=== PATIENT | male | born 1975 | race Caucasian/White ===

== ENCOUNTER 2020-06-17 08:28 | Day surgery (SDC) | payer BC ==
[2020-06-12 14:57] VITALS: BMI 29.7
[~2020-06-17 08:28] MED LIST: LACTATED RINGERS 1,000 ML IV SCH; LIDOCAINE 1% (10MG/ML) FOR IV START INTRADERMA PRN
--- NOTE | 2020-06-17 08:28 | P.GSHP ---
History of Present Illness H&P Date: 06/17/20 CHIEF COMPLAINT: GERD and colon screen HISTORY OF PRESENT ILLNESS: The patient is a 45-year-old male who presents with gastroesophageal reflux disease and need for colon screen. Upper and lower endoscopy were offered for further evaluation and management. PAST MEDICAL HISTORY: Please see list. PAST SURGICAL HISTORY: Please see list. MEDICATIONS: Please see list. ALLERGIES: Please see list. SOCIAL HISTORY: No illicit drug use FAMILY HISTORY: No reports of Crohn disease or ulcerative colitis. REVIEW OF ORGAN SYSTEMS: CONSTITUTIONAL: No reports of fevers or chills. GI: Denies any blood in stools or constipation. PHYSICAL EXAM: VITAL SIGNS: Stable GENERAL: Well-developed pleasant in no acute distress. HEENT: No scleral icterus. Extraocular movements grossly intact. Moist buccal mucosa. NECK: Supple without lymphadenopathy. CHEST: Unlabored respirations. Equal bilateral excursions. CARDIOVASCULAR: Regular rate and rhythm. Distal 2+ pulses. ABDOMEN: Soft, nondistended. MUSCULOSKELETAL: No clubbing, cyanosis, or edema. ASSESSMENT: 1. Gastroesophageal reflux disease 2. Colon screen. PLAN: 1. Recommend proceeding with an upper and lower endoscopy Past Medical History Past Medical History: Atrial Fibrillation, GERD/Reflux, Hypertension Additional Past Medical History / Comment(s): loose stools, change in color of stool, History of Any Multi-Drug Resistant Organisms: None Reported Past Surgical History: No Surgical Hx Reported Past Anesthesia/Blood Transfusion Reactions: No Reported Reaction Additional Past Anesthesia/Blood Transfusion Reaction / Comment(s): never had anesthesia Smoking Status: Never smoker - Past Family History Mother Family Medical History: No Reported History Medications and Allergies Home Medications Medication Instructions Recorded Confirmed Type Ergocalciferol (Vitamin D2) 50 mcg PO DAILY 06/12/20 06/12/20 History [Vitamin D2 (2000 Iu)] Metoprolol Tartrate [Lopressor] 50 mg PO QAM 06/12/20 06/12/20 History Omeprazole [PriLOSEC] 20 mg PO AC-BRKFST 06/12/20 06/12/20 History Rivaroxaban [Xarelto] 20 mg PO HS 06/12/20 06/12/20 History amLODIPine [Norvasc] 5 mg PO DAILY 06/12/20 06/12/20 History Allergies Allergy/AdvReac Type Severity Reaction Status Date / Time No Known Allergies Allergy Verified 06/12/20 14:49
[2020-06-17 08:54] VITALS: TEMP 98.1
[2020-06-17] MEDS ORDERED: PROPOFOL 10 MG/ML 20 ML VIAL IV ONE (09:52)
[2020-06-17] MEDS ORDERED: LIDOCAINE 1% INJ 10MG/ML (20 ML MDV) ONE (09:52)
[2020-06-17] MEDS ORDERED: MIDAZOLAM 2 MG/2 ML VIAL ONE (09:52)
--- NOTE | 2020-06-17 10:32 | P.PCN ---
Date of Procedure: 06/17/20 Description of Procedure: PREOPERATIVE DIAGNOSIS: Dysphagia. Gastroesophageal reflux disease Epigastric abdominal pain POSTOPERATIVE DIAGNOSIS: Dysphagia. Gastroesophageal reflux disease Epigastric abdominal pain Esophageal stricture Gastritis OPERATION: Esophagogastroduodenoscopy with balloon dilation, 20 mm Esophagogastroduodenoscopy with cold forceps biopsies along antrum SURGEON: Herlinda Justice MD ANESTHESIA: MAC. INDICATIONS: The patient is a 45-year-old male who presents with gastritis, epigastric abdominal pain. Upper endoscopy was offered for therapeutic and diagnostic assessment. Benefits and risks of the procedure were described. Informed consent was obtained. DESCRIPTION: The patient was brought into the endoscopy suite and laid in the left lateral decubitus position. After a timeout was confirmed, the procedure was initiated. An Olympus gastroscope was passed into the esophagus where a stricture along the distal esophagus was identified with esophagitis. The stomach was entered. Mild gastritis was identified. The scope was advanced to the duodenum which was unremarkable. Retroflexion the scope confirmed a Hill grade 3 lower esophageal valve. LA grade C erosive esophagitis was identified without ulcerations. Diaphragmatic hiatal hernia 3 cm was found. Cold forceps biopsies were obtained of the antrum. Next a [employer] 20 mm balloon was advanced with dilation of distal esophageal stricture of 15 mm and left in place for 2-3 minutes stretch. Mucosal tear with bleeding was identified without full-thickness injury. The GI tract was desufflated. The patient tolerated the procedure well. FINDINGS: Squamocolumnar junction unremarkable at 39 cm. Diaphragmatic hiatus at 42 cm Hiatal hernia, 3 cm Distal esophageal stricture without ulceration Balloon dilation of 20 mm performed for stricture of 15 mm. Chronic gastritis without bleeding. Hill grade 3 lower esophageal valve. LA grade C esophagitis. RECOMMENDATIONS: 1. Recommend omeprazole 40 mg twice a day for esophageal stricture and severe erosive esophagitis 2. Chest x-ray obtained status post dilation.
[2020-06-17] MEDS ORDERED: NALOXONE 0.4 MG/ML 1 ML VIAL IV PRN (10:45)
[2020-06-17] MEDS ORDERED: ONDANSETRON 4 MG/2 ML VIAL IVP PRN (10:45)
[2020-06-17] MEDS ORDERED: SODIUM CHLORIDE 0.9% 1,000 ML IV ONE (10:47)
--- NOTE | 2020-06-17 10:49 | XR ---
EXAMINATION TYPE: XR chest 1V portable DATE OF EXAM: 06/17/2020 COMPARISON: NONE HISTORY: Chest pain TECHNIQUE: Single frontal view of the chest is obtained. FINDINGS: There is no focal air space opacity, pleural effusion, or pneumothorax seen. The cardiac silhouette size is within normal limits. The osseous structures are intact. IMPRESSION: 1. No acute process.
[2020-06-17] MEDS ORDERED: SIMETHICONE 40 MG/0.6 ML DROPS 2,000 MG/30 ML BOTTLE PO SCH (11:01)
[2020-06-17] MEDS: PANTOPRAZOLE 40 MG/10 ML VIAL IV SCH ×2 (11:20→11:24)
--- NOTE | 2020-06-17 11:28 | P.PCN ---
Date of Procedure: 06/17/20 Description of Procedure: PREOPERATIVE DIAGNOSIS: Change in bowel habits POSTOPERATIVE DIAGNOSIS: Poor prep Descending colon adenoma OPERATION: Colonoscopy to the ileocecal valve and appendiceal orifice, cecum Colonoscopy with hot snare polypectomy SURGEON: Herlinda Justice MD. ANESTHESIA: MAC. INDICATIONS: The patient is an 45-year-old male who presents family history of malignant colon polyps and personal history of colon polyps. Last colonoscopy 5 years. Benefits and risks were described and informed consent was obtained. DESCRIPTION OF PROCEDURE: The patient had undergone Suprep. The patient had been brought into the operating room and laid in the left lateral decubitus position. After adequate intravenous sedation, the rectum was examined with 2% lidocaine jelly. The prostate was unremarkable. No external hemorrhoids were encountered. The rectal tone was within normal limits. No lesions were palpated in the rectal vault. An Olympus colonoscope was advanced until the cecum, ileocecal valve and appendiceal orifice were clearly viewed. The prep was poor. No sigmoid diverticulosis was encountered. Colonic polyps were found and removed. No evidence of focal colitis was found. Retroflexion of the scope demonstrated grade 1 internal hemorrhoids without active bleeding or inflammation. The colon was desufflated. The patient had tolerated the procedure well. Withdrawal time was over 6 minutes. FINDINGS: Aronchick preparation quality scale 4 (1-5) Internal hemorrhoids, grade 1 No external hemorrhoids, grade 4. No arteriovenous malformations. No sigmoid diverticulosis Removal of 1 polyp: - Snare polypectomy 30 cm from the anal verge, 6 mm tubulovillous adenoma polyp, descending colon No focal colitis. RECOMMENDATIONS: Repeat colonoscopy in 3 years, 2023. Recommend extended colonic prep due to very poor prep Plan - Discharge Summary New Discharge Prescriptions: No Action Omeprazole [PriLOSEC] 20 mg PO AC-BRKFST amLODIPine [Norvasc] 5 mg PO DAILY Ergocalciferol (Vitamin D2) [Vitamin D2 (2000 Iu)] 50 mcg PO DAILY Rivaroxaban [Xarelto] 20 mg PO HS Metoprolol Tartrate [Lopressor] 50 mg PO QAM Discharge Medication List Ergocalciferol (Vitamin D2) [Vitamin D2 (2000 Iu)] 50 mcg PO DAILY 06/12/20 [History] Metoprolol Tartrate [Lopressor] 50 mg PO QAM 06/12/20 [History] Omeprazole [PriLOSEC] 20 mg PO AC-BRKFST 06/12/20 [History] Rivaroxaban [Xarelto] 20 mg PO HS 06/12/20 [History] amLODIPine [Norvasc] 5 mg PO DAILY 06/12/20 [History] Patient Instructions/Handouts: *[facility] - (Anesthesia) Endoscopy Discharge Instructions, Colonoscopy (DC), Upper Endoscopy (DC)
--- NOTE | 2020-06-17 11:29 | P.PN ---
Progress Note - Text Progress Note Date: 06/17/20 Postoperatively, patient complained of epigastric pain. Chest x-ray obtained demonstrating no pneumomediastinum or acute injury. He has pre-existing history of severe cardiac disease including atrial fibrillation, chronic blood thinners. Recommend telemetry with admission IV antibiotics for esophageal dilation with mucosal tear. We'll reevaluate clinical course.
[2020-06-17 11:43] VITALS: RESP 18
[2020-06-17 12:19] LABS: Basophils % (A) 0 %; Eosinophils % (A) 1 %; HCT 46.4 % (39.0-53.0); HGB 16.3 gm/dL (13.0-17.5); Lymphocytes # (A) 0.9 k/uL (1.0-4.8); Lymphocytes % (A) 15 %; MCH 30.4 pg (25.0-35.0); MCV 86.9 fL (80.0-100.0); Mean Platelet Volume 7.9; Monocytes # (A) 0.3 k/uL (0-1.0); Monocytes % (A) 5 %; Neutrophils # (A) 4.6 k/uL (1.3-7.7); Neutrophils % (A) 78 %; Platelet Count 218 k/uL (150-450); RBC 5.34 m/uL (4.30-5.90); RDW 12.9 % (11.5-15.5); WBC 5.9 k/uL (3.8-10.6)
[2020-06-17 12:25] LABS: ALT 19 U/L (4-49); AST 23 U/L (17-59); African American GFR (CKD) >90 (>60 ml/min/1.73 sqM); Albumin 4.5 g/dL (3.5-5.0); Alkaline Phosphatase 88 U/L (38-126); Anion Gap 6 mmol/L; Blood Urea Nitrogen 21 mg/dL (9-20); Calcium 9.6 mg/dL (8.4-10.2); Carbon Dioxide 28 mmol/L (22-30); Chloride 105 mmol/L (98-107); Glucose 102 mg/dL (74-99); Magnesium 2.3 mg/dL (1.6-2.3); Non-African American GFR(CKD) >90 (>60 ml/min/1.73 sqM); Potassium 4.3 mmol/L (3.5-5.1); Sodium 139 mmol/L (137-145); Total Bilirubin 0.9 mg/dL (0.2-1.3); Total Protein 7.1 g/dL (6.3-8.2)
[2020-06-17 12:56] VITALS: BP 136/91; PULSE 78
--- NOTE | 2020-06-17 13:23 | P.PN ---
Progress Note - Text Progress Note Date: 06/17/20 Patient reevaluated. Chest x-ray was unremarkable. White blood consult was normal. Patient's abdominal pain had resolved. No further abdominal distention. Patient clinically resolved symptoms. Stable for discharge.
[2020-06-17] MEDS ORDERED: ACETAMINOPHEN IV (For NPO) 1,000 MG in EMPTY BAG 1 BAG IVPB ONE (14:00)
[2020-06-18] MEDS ORDERED: amLODIPine 5 MG TAB PO SCH (09:00)
[2020-06-18] MEDS ORDERED: METOPROLOL TARTRATE 50 MG TAB PO SCH (09:00)
[2020-06-18] MEDS ORDERED: ENOXAPARIN 30 MG/0.3 ML SYRINGE SQ SCH (09:00)
== END 2020-06-17 13:49 | disposition home or self-care (01) ==
LOC: ORWHC2ENDO 08:28 → 6NMEDSUR 10:19 → ORWHC2ENDO 10:19
PROVIDERS: ATTEND Surgery Plastic and Reconstructive Surgery
DX: K29.50 Unspecified chronic gastritis without bleeding (principal); K22.2 Esophageal obstruction; K20.0 Eosinophilic esophagitis; D12.4 Benign neoplasm of descending colon; K44.9 Diaphragmatic hernia without obstruction or gangrene; Z80.0 Family history of malignant neoplasm of digestive organs; Z86.010 Personal history of colon polyps; K64.0 First degree hemorrhoids; R19.4 Change in bowel habit; I48.91 Unspecified atrial fibrillation; I10 Essential (primary) hypertension; Z79.01 Long term (current) use of anticoagulants; Z79.899 Other long term (current) drug therapy
CPT/HCPCS: 88305; 80053; 83735; 85025; 87635; 71045; 45385; 43239; 43249; J2250; J0690; J2001; J0131; J2704; C9113; C1726

== ENCOUNTER 2020-08-20 06:25 | Day surgery (SDC) | payer BC ==
[2020-08-19 11:50] VITALS: BMI 29.1
[~2020-08-20 06:25] MED LIST changes: -LIDOCAINE 1% (10MG/ML) FOR IV START INTRADERMA PRN; +SODIUM CHLORIDE 0.9% 1,000 ML IV SCH
[2020-08-20] MEDS ORDERED: SODIUM CHLORIDE 0.9% 500 ML 500 ML IV ONE (06:44)
[2020-08-20 07:02] VITALS: TEMP 97.9
[2020-08-20] MEDS ORDERED: PROPOFOL 10 MG/ML 20 ML VIAL IV ONE (07:25)
[2020-08-20] MEDS ORDERED: BENZOCAINE SPRAY 1 CAN MUCOUS MEM ONE (07:31)
[2020-08-20 07:32] LABS: African American GFR (CKD) >90 (>60 ml/min/1.73 sqM); Anion Gap 9 mmol/L; Blood Urea Nitrogen 26 mg/dL (9-20); Calcium 9.8 mg/dL (8.4-10.2); Carbon Dioxide 28 mmol/L (22-30); Chloride 105 mmol/L (98-107); Glucose 97 mg/dL (74-99); Non-African American GFR(CKD) >90 (>60 ml/min/1.73 sqM); Potassium 4.1 mmol/L (3.5-5.1); Sodium 142 mmol/L (137-145)
[2020-08-20 07:57] VITALS: RESP 16
[2020-08-20] MEDS ORDERED: LOSARTAN 25 MG TAB PO STA (07:58)
[2020-08-20 09:18] VITALS: BP 122/78; PULSE 63
--- NOTE | 2020-08-20 11:21 | ECHOS ---
STRESS ECHOCARDIOGRAM CARDIOVERSION PROCEDURE: INDICATION: Persistent atrial fibrillation. The patient underwent cardioversion for persistent atrial fibrillation. We made sure that there was no intracardiac thrombus with the transesophageal echo. The patient had been adequately anticoagulated with Xarelto and converted to sinus rhythm following a single 200 joule synchronized DC shock and patient remained in sinus rhythm and we will obtain an EKG. MANDY / LAURY: [id number] /
--- NOTE | 2020-08-20 11:21 | ECHOS ---
STRESS ECHOCARDIOGRAM INDICATION: Persistent atrial fibrillation. PROCEDURE NOTE: After obtaining informed consent, transesophageal echocardiogram was performed in left lateral position using an Omni plane probe. Local and IV sedation were obtained by the slip sheeter. Color Doppler and 2D and spectral analysis has been performed. The patient tolerated the procedure well without any obvious immediate complications. FINDINGS: 1. There is no intracardiac thrombus within the left atrial appendage, left atrium, right atrium, right ventricle. 2. Left ventricle appears mildly enlarged with diffuse global hypokinesis and moderate LV dysfunction with an ejection fraction of 40%. 3. Left atrium appears enlarged. 4. Right atrium and right ventricle seen within normal limits. 5. Interatrial septum: There is no evidence of vmck-ir-xklyy shunt by color-flow Doppler or clrrq-ba-ffpw shunt by agitated saline contrast study. 6. Mitral valve shows moderate central mitral regurgitation secondary to dilated mitral anulus. 7. Tricuspid valve appears normal. 8. Aortic valve is a 3-leaflet valve. There is no evidence of aortic stenosis or regurgitation. 9. Aortic root appears within normal limits. CONCLUSIONS: 1. No intracardiac thrombus. 2. Moderate LV dysfunction. 3. Moderate mitral regurgitation. PLAN: Patient will undergo cardioversion. MMODL / IJN: [id number] /
== END 2020-08-20 09:19 | disposition home or self-care (01) ==
LOC: CATHCVL 06:25
PROVIDERS: ATTEND Internal Medicine Cardiovascular Disease
DX: I48.19 Other persistent atrial fibrillation (principal); I34.0 Nonrheumatic mitral (valve) insufficiency; I10 Essential (primary) hypertension; Z82.49 Family history of ischemic heart disease and other diseases of the circulatory system; Z79.01 Long term (current) use of anticoagulants; Z79.899 Other long term (current) drug therapy; Z20.822 Contact with and (suspected) exposure to COVID-19
CPT/HCPCS: 93312; 93320; 93325; 92960; 80048; 87635; J2704

== ENCOUNTER 2020-09-09 06:29 | Day surgery (SDC) | payer BC ==
[2020-09-08 12:49] VITALS: BMI 30.5
[~2020-09-09 06:29] MED LIST changes: +ALPRAZolam 0.25 MG TAB PO PRN; +ALPRAZolam 0.5 MG TAB PO PRN; +ASPIRIN 325 MG TAB PO STA; +ATORVASTATIN 80 MG TAB PO STA; +HEPARIN SODIUM,PORCINE 10,000 UNIT in SODIUM CHLORIDE 0.9% 1,000 ML IRRIGATION PRN; +HEPARIN SODIUM,PORCINE 2,500 UNIT in SODIUM CHLORIDE 0.9% 250 ML IRRIGATION PRN; -LACTATED RINGERS 1,000 ML IV SCH; +NITROGLYCERIN SL TABS 0.4 MG TAB SUBLINGUAL PRN; -SODIUM CHLORIDE 0.9% 1,000 ML IV SCH; +SODIUM CHLORIDE 0.9% 1,000 ML in EMPTY BAG 1 BAG IV ONE
[2020-09-09] MEDS ORDERED: SODIUM CHLORIDE 0.9% 1,000 ML IV ONE (06:43)
[2020-09-09 07:16] VITALS: RESP 16; TEMP 98.9
[2020-09-09] MEDS: MIDAZOLAM 2 MG/2 ML VIAL IV ONE ×2 (07:40→07:46)
[2020-09-09] MEDS ORDERED: fentaNYL (PF) 50 MCG/ML 2 ML AMP IV ONE (07:40)
[2020-09-09] MEDS ORDERED: LIDOCAINE 1% INJ 10MG/ML (20 ML MDV) SQ ONE (07:43)
[2020-09-09] MEDS ORDERED: METOPROLOL TARTRATE 5 MG/5 ML VIAL IVP ONE (07:51)
[2020-09-09] MEDS ORDERED: IOPAMIDOL-370 125ML BTL INJ ONE (07:55)
[2020-09-09] MEDS ORDERED: RX INFO: IV CONTRAST WAS GIVEN 1 EACH MISC MISCELLANE PRN (08:07)
[2020-09-09 08:09] LABS: HCT 43.3 % (39.0-53.0); HGB 14.8 gm/dL (13.0-17.5); MCH 29.9 pg (25.0-35.0); MCHC 34.2 g/dL (31.0-37.0); MCV 87.5 fL (80.0-100.0); Mean Platelet Volume 7.8; Platelet Count 196 k/uL (150-450); RBC 4.96 m/uL (4.30-5.90); RDW 13.9 % (11.5-15.5); WBC 5.8 k/uL (3.8-10.6)
[2020-09-09] MEDS ORDERED: SODIUM CHLORIDE 0.9% 1,000 ML IV SCH (08:15)
[2020-09-09 08:31] LABS: Eosinophils # (M) 0.17 k/uL (0-0.7); Lymphocytes # (M) 1.33 k/uL (1.0-4.8); Monocytes # (M) 0.58 k/uL (0-1.0); Neutrophils # (M) 3.71 k/uL (1.3-7.7); Neutrophils % (M) 64 %; Nucleated Red Blood Cells 0 /100 WBC (0-0); Total Cells Counted 100
[2020-09-09 08:32] LABS: Anisocytosis (M) Present; Poikilocytosis (M) Present
--- NOTE | 2020-09-09 08:53 | CC ---
CARDIAC CATHETERIZATION REPORT PROCEDURE PERFORMED: Cardiac catheterization. INDICATION: Dilated cardiomyopathy. PROCEDURE NOTE: After obtaining informed consent, left heart catheterization and coronary angiogram were performed via the right femoral artery using standard Hayden catheters. Patient tolerated the procedure well without any obvious immediate complications. A femoral angiogram was performed and Angio-Seal was deployed for hemostasis. He received moderate conscious sedation. Total sedation time was 17 minute. HEMODYNAMICS: Left ventricular end-diastolic pressure is 8 to 12 mm. There is no significant gradient across the aortic valve. LEFT VENTRICULOGRAM: Not performed. ANGIOGRAPHIC DATA: The left main coronary artery is a small vessel and is free of stenosis. Divides into left anterior descending coronary artery and circumflex coronary artery. LAD and its branches, circumflex coronary artery and its branches are free of significant stenosis. Right coronary artery is a large dominant vessel and is free of significant disease. CONCLUSIONS: 1. Normal coronary arteries. 2. Nonischemic cardiomyopathy. PLAN: The patient's heart rate is poorly controlled. I will increase the dose of Toprol-XL to 100 mg daily. Continue the losartan. Continue the Xarelto. Consider starting him on amiodarone and make another attempted cardioversion and if we are unsuccessful refer him to EP for ablation. MMODL / IJN: [id number] /
[2020-09-09 12:20] VITALS: PULSE 84
[2020-09-09 12:24] VITALS: BP 136/83
== END 2020-09-09 12:01 | disposition home or self-care (01) ==
LOC: CATHCVL 06:29
PROVIDERS: ATTEND Internal Medicine Cardiovascular Disease
DX: I42.9 Cardiomyopathy, unspecified (principal); I10 Essential (primary) hypertension; Z82.49 Family history of ischemic heart disease and other diseases of the circulatory system; I48.91 Unspecified atrial fibrillation; Z79.01 Long term (current) use of anticoagulants; Z79.899 Other long term (current) drug therapy
CPT/HCPCS: 93458; 85025; C1769 ×2; C1760; C1894; J2250; J2001; J3010; Q9967

== ENCOUNTER 2020-12-24 07:35 | Day surgery (SDC) | payer BC ==
[2020-12-22 15:55] VITALS: BMI 29.8
[~2020-12-24 07:35] MED LIST changes: -ALPRAZolam 0.25 MG TAB PO PRN; -ALPRAZolam 0.5 MG TAB PO PRN; -ASPIRIN 325 MG TAB PO STA; -ATORVASTATIN 80 MG TAB PO STA; -HEPARIN SODIUM,PORCINE 10,000 UNIT in SODIUM CHLORIDE 0.9% 1,000 ML IRRIGATION PRN; -HEPARIN SODIUM,PORCINE 2,500 UNIT in SODIUM CHLORIDE 0.9% 250 ML IRRIGATION PRN; -NITROGLYCERIN SL TABS 0.4 MG TAB SUBLINGUAL PRN; +SODIUM CHLORIDE 0.9% 1,000 ML IV SCH; -SODIUM CHLORIDE 0.9% 1,000 ML in EMPTY BAG 1 BAG IV ONE
[2020-12-24] MEDS ORDERED: SODIUM CHLORIDE 0.9% 500 ML 500 ML IV ONE (07:50)
[2020-12-24 08:07] VITALS: RESP 16; TEMP 98.8
[2020-12-24 09:12] LABS: African American GFR (CKD) >90 (>60 ml/min/1.73 sqM); Anion Gap 8 mmol/L; Blood Urea Nitrogen 20 mg/dL (9-20); Calcium 9.5 mg/dL (8.4-10.2); Carbon Dioxide 26 mmol/L (22-30); Chloride 107 mmol/L (98-107); Glucose 98 mg/dL (74-99); Non-African American GFR(CKD) >90 (>60 ml/min/1.73 sqM); Potassium 3.5 mmol/L (3.5-5.1); Sodium 141 mmol/L (137-145)
[2020-12-24] MEDS ORDERED: LIDOCAINE 1% INJ 10MG/ML (20 ML MDV) ONE (09:51)
[2020-12-24] MEDS ORDERED: PROPOFOL 10 MG/ML 20 ML VIAL IV ONE (09:51)
[2020-12-24 11:32] VITALS: BP 133/79; PULSE 54
--- NOTE | 2020-12-24 12:23 | ECHOT ---
TRANSESOPHAGEAL ECHOCARDIOGRAM INDICATION: To rule out intracardiac thrombus in a patient who is to undergo cardioversion. PROCEDURE NOTE: After obtaining informed consent, transesophageal echocardiogram was performed in left lateral position using an Omniplane probe. Local and IV sedation were obtained by the bed teacher. Patient tolerated the procedure well without any obvious immediate complications. Two-dimensional, M-mode, color Doppler and spectral analysis have been performed. FINDINGS: 1. No intracardiac thrombus within the left atrial appendage, left atrium, right atrium, right ventricle. 2. Left atrium appears mildly enlarged. 3. Right atrium and right ventricle within normal limits. 4. Left ventricle has normal size and systolic function. 5. Mitral valve shows moderate central mitral regurgitation. 6. Aortic valve is free of stenosis or regurgitation. 7. Tricuspid valve shows mild tricuspid regurgitation. 8. Interatrial septum: There is no evidence of brbw-gp-ddfsg shunt by color-flow Doppler or iyezn-vo-qlhp shunt by agitated saline contrast study. CONCLUSIONS: 1. No intracardiac thrombus. 2. Normal LV function. 3. Moderate mitral regurgitation. PLAN: Patient will undergo cardioversion. MMODL / IJN: [id number] /
--- NOTE | 2020-12-24 15:50 | PCN ---
PROCEDURE NOTE CARDIOVERSION NOTE: INDICATION: Persistent atrial fibrillation. PROCEDURE DESCRIPTION: After obtaining informed consent, patient underwent electrical cardioversion with 200 joules of synchronized DC current. I initially attempted cardioversion with 100 joules and subsequently with 150 joules, which were unsuccessful, and we ended up using 200 joules, which successfully converted him to sinus rhythm. Patient is on amiodarone, which I will continue. He is on Xarelto for anticoagulation. A AARON prior to cardioversion did not show any evidence of intracardiac thrombus. MMODL / IJN: [id number] /
== END 2020-12-24 11:35 | disposition home or self-care (01) ==
LOC: CATHCVL 07:35
PROVIDERS: ATTEND Internal Medicine Cardiovascular Disease
DX: I48.11 Longstanding persistent atrial fibrillation (principal); I08.1 Rheumatic disorders of both mitral and tricuspid valves; I42.0 Dilated cardiomyopathy; Z20.822 Contact with and (suspected) exposure to COVID-19; I10 Essential (primary) hypertension; G47.33 Obstructive sleep apnea (adult) (pediatric); K21.9 Gastro-esophageal reflux disease without esophagitis; Z82.49 Family history of ischemic heart disease and other diseases of the circulatory system; Z79.01 Long term (current) use of anticoagulants; Z79.899 Other long term (current) drug therapy
CPT/HCPCS: 93312; 93320; 93325; 92960; 80048; 87635; J2001; J2704

== ENCOUNTER → 2021-02-09 | Outpatient (CLI) | payer BC ==
[2021-02-09 09:13] LABS: African American GFR (CKD) >90 (>60 ml/min/1.73 sqM); Blood Urea Nitrogen 19 mg/dL (9-20); Non-African American GFR(CKD) >90 (>60 ml/min/1.73 sqM)
--- NOTE | 2021-02-09 09:49 | CT ---
EXAMINATION TYPE: CT urogram wo/w con DATE OF EXAM: 02/09/2021 COMPARISON: None HISTORY: Gross hematuria CT DLP: 1724.9 mGycm Automated exposure control for dose reduction was used. CONTRAST: Performed without and with IV Contrast, patient injected with 100 mL of Isovue 370. FINDINGS: No hydronephrosis or nephrolithiasis. Parapelvic left renal cysts are seen. Bifid left renal pelvis w ith dromedary hump. Ureters are of normal caliber and course and caliber. Bladder demonstrates no def inite filling defect. Tiny hypodensities measuring less than 5 mm involving the right and left kidney s are too small to characterize. Prostate gland mildly enlarged. Liver, spleen, pancreas, adrenal glands have a normal appearance. Tiny hypodensity within the left lo be of the liver too small to characterize. Aorta of normal caliber. Bowel gas pattern nonspecific. No obstruction. No free fluid or free air. Hypertrophic change of the spine. Fat-containing bilateral i nguinal hernias are small fat-containing periumbilical hernia IMPRESSION: A BIFID LEFT RENAL PELVIS WITH NO HYDRONEPHROSIS OR NEPHROLITHIASIS.
== END | disposition home or self-care (01) ==
LOC: RADCTMAIN 08:08
PROVIDERS: ATTEND Urology
DX: R31.0 Gross hematuria (principal)
CPT/HCPCS: 82565; 84520; 74178; 36415; 74400; Q9967

== ENCOUNTER 2022-03-14 06:09 | Day surgery (SDC) | payer BC ==
[2022-03-11 08:36] VITALS: BMI 30.9
[2022-03-14] MEDS ORDERED: LACTATED RINGERS 1,000 ML IV SCH (06:18)
[2022-03-14 07:16] LABS: Calcium 9.1 mg/dL (8.4-10.2)
[2022-03-14] MEDS ORDERED: PROPOFOL 10 MG/ML 20 ML VIAL IV ONE (07:35)
[2022-03-14] MEDS ORDERED: BENZOCAINE SPRAY 1 CAN TOPICAL ONE ×2 (07:38→07:45)
[2022-03-14 08:21] VITALS: TEMP 97.6
[2022-03-14 08:24] VITALS: RESP 16
[2022-03-14 09:42] VITALS: BP 143/96; PULSE 62
--- NOTE | 2022-03-16 11:23 | ECHOT ---
TRANSESOPHAGEAL ECHOCARDIOGRAM AARON and cardioversion. INDICATION: Persistent atrial fibrillation to rule out intracardiac thrombus prior to cardioversion. PROCEDURE NOTE: After obtaining informed consent, transesophageal echocardiogram was performed in left lateral position. Local and IV sedation were obtained by the drama critic. The patient tolerated the procedure well without any obvious immediate complications. FINDINGS: 1. There is no intracardiac thrombus within the left atrial appendage, left atrium, right atrium and right ventricle. 2. Left atrium appears moderately enlarged. 3. Right atrium, right ventricle seem within normal limits. 4. Left ventricle has normal size and systolic function. 5. Mitral valve shows moderate central mitral regurgitation. 6. Aortic valve is free of stenosis or regurgitation. 7. Interatrial septum, there is evidence of wzqr-hp-bqqeq shunt by color-flow Doppler that we did not appreciate on the last AARON. There is no evidence of xgwde-dm-pngs shunt. CONCLUSIONS: Normal LV function. No intracardiac thrombus. Moderate mitral regurgitation. PLAN: The patient will undergo cardioversion. CARDIOVERSION NOTE: INDICATION: Persistent atrial fibrillation. After obtaining informed consent, cardiac motion was performed using synchronized DC current. The patient is adequately anticoagulated with Xarelto and is on flecainide. He was shocked 3 times at 150, 200, and 200 joules, he did not convert to sinus rhythm. MMODL / IJN: [id number] /
== END 2022-03-14 09:54 | disposition home or self-care (01) ==
LOC: CATHCVL 06:09
PROVIDERS: ATTEND Internal Medicine Cardiovascular Disease
DX: I48.19 Other persistent atrial fibrillation (principal); I34.0 Nonrheumatic mitral (valve) insufficiency; I10 Essential (primary) hypertension; F41.9 Anxiety disorder, unspecified; K21.9 Gastro-esophageal reflux disease without esophagitis; Z87.448 Personal history of other diseases of urinary system; Z79.01 Long term (current) use of anticoagulants; Z79.02 Long term (current) use of antithrombotics/antiplatelets; Z82.49 Family history of ischemic heart disease and other diseases of the circulatory system; Z79.811 Long term (current) use of aromatase inhibitors; Z79.899 Other long term (current) drug therapy
CPT/HCPCS: 93312; 93320; 93325; 92960; 80048; J2704

== ENCOUNTER 2023-03-21 05:53 | Day surgery (SDC) | payer BC ==
[2023-03-16 13:51] VITALS: BMI 30.2
[2023-03-21] MEDS ORDERED: SODIUM CHLORIDE 0.9% 1,000 ML IV SCH (05:58)
[2023-03-21] MEDS ORDERED: SODIUM CHLORIDE 0.9% 1,000 ML IV ONE (06:05)
[2023-03-21 06:31] LABS: Basophils % (A) 1 %; Eosinophils # (A) 0.1 k/uL (0-0.7); Eosinophils % (A) 2 %; HGB 14.7 gm/dL (13.0-17.5); Lymphocytes # (A) 1.5 k/uL (1.0-4.8); Lymphocytes % (A) 30 %; MCH 29.8 pg (25.0-35.0); MCHC 34.1 g/dL (31.0-37.0); MCV 87.5 fL (80.0-100.0); Mean Platelet Volume 8.4; Monocytes # (A) 0.3 k/uL (0-1.0); Monocytes % (A) 6 %; Neutrophils # (A) 2.8 k/uL (1.3-7.7); Neutrophils % (A) 58 %; Platelet Count 191 k/uL (150-450); RBC 4.92 m/uL (4.30-5.90); RDW 13.2 % (11.5-15.5); WBC 4.9 k/uL (3.8-10.6)
[2023-03-21 06:40] LABS: African American GFR (CKD) >90 (>60 ml/min/1.73 sqM); Anion Gap 5 mmol/L; Blood Urea Nitrogen 16 mg/dL (9-20); Calcium 9.3 mg/dL (8.4-10.2); Carbon Dioxide 30 mmol/L (22-30); Chloride 104 mmol/L (98-107); Glucose 97 mg/dL (74-99); Non-African American GFR(CKD) >90 (>60 ml/min/1.73 sqM); Sodium 139 mmol/L (137-145)
[2023-03-21] MEDS ORDERED: fentaNYL (PF) 50 MCG/ML 2 ML AMP ONE (07:32)
[2023-03-21] MEDS ORDERED: MIDAZOLAM 2 MG/2 ML VIAL ONE (07:32)
[2023-03-21] MEDS ORDERED: PHENYLEPHRINE 10 MG/ML VIAL ONE (07:32)
[2023-03-21] MEDS ORDERED: HEPARIN SODIUM,PORCINE 10,000 UNIT/ML 1 ML VIAL ONE (07:32)
[2023-03-21] MEDS ORDERED: PROPOFOL 10 MG/ML 20 ML VIAL IV ONE (07:32)
[2023-03-21] MEDS ORDERED: SUCCINYLCHOLINE CHLORIDE 200 MG/10 ML VIAL IV ONE (07:32)
[2023-03-21] MEDS ORDERED: LIDOCAINE 1% INJ 10MG/ML (20 ML MDV) ONE ×2 (07:32→07:57)
[2023-03-21] MEDS ORDERED: HEPARIN SOD,PORK IN 0.45% NACL 25,000 UNIT in 0.45% NACL 1 250ML.BAG IV ONE (08:20)
[2023-03-21] MEDS ORDERED: IOPAMIDOL-370 100ML BTL INJ ONE (10:31)
[2023-03-21] MEDS ORDERED: ACETAMINOPHEN TAB 325 MG TAB PO PRN (11:35)
[2023-03-21] MEDS ORDERED: ACETAMINOPHEN IV (For NPO) 1,000 MG in EMPTY BAG 1 BAG IVPB ONE (11:35)
--- NOTE | 2023-03-21 11:55 | P.EPPROC ---
- EP Procedure Note Electrophysiology Procedure Note: PROCEDURE A. fib ablation DIAGNOSIS Persistent atrial fibrillation, symptomatic, refractory to therapy with associated cardiomyopathy RESULT No left atrial appendage mass seen on intracardiac echo Reduced LV systolic function Thickened pericardium with exudative/fibrinous material especially at the base and posterior to the left atrium Successful A. fib ablation/pulmonary vein isolation of all veins using cryo- ablation Large pulmonary veins with multiple proximal tributaries as well as right middle pulmonary vein Left atrial roof ablation Complete entrance block in all 4 veins confirmed No evidence for phrenic nerve injury Esophageal deflection YES Electrical cardioversion with a synchronized shock across the chest YES PROCEDURE DETAILS Written informed consent prior to procedure. Patient brought to the EP lab. General anesthesia given. Heparin administered. A city maintained above 300 seconds Both groins prepped and draped per protocol and venous sheaths placed. Esophagus intubated, circa catheter for temperature monitoring an endoscope for possible esophageal deflection. Phrenic nerve monitoring performed. Esophageal temperature monitoring performed. Esophageal deflection performed if circa catheter overlapping with the balloon or circa temperature less than 27.5C Intracardiac echocardiography performed. Pericardium evaluated. Left atrial appendage evaluated. Left atrium evaluated along with pulmonary veins Transseptal catheterization performed under fluoroscopic guidance and intracardiac echo guidance Cryoablation sheath exchanged, balloon catheter along with achieve catheter placed in the left atrium. Pulmonary veins isolated in the following sequence: Left superior pulmonary vein followed by left inferior pulmonary vein, followed by right inferior pulmonary vein and lastly right superior pulmonary vein. Phrenic nerve stimulation along with capture thresholds within the SVC and right superior pulmonary vein to identify the phrenic nerve proximity to the cryo- balloon. Pulmonary veins isolated and confirmed with entrance and exit block. Phrenic nerve integrity confirmed at the end of the procedure Ablation of the left atrial roof performed with sequential lesions from the left superior to the right superior pulmonary veins. Ablation of the electrograms confirmed Electrical cardioversion performed for persistence of atrial fibrillation despite successful ablation. Diagnostic catheters for the high right atrium, His bundle, coronary sinus placed. LA and RA pressures recorded RA pressure: LA pressure: 10/07/09 Diagnostic EP study with coronary sinus pacing and recording Baseline measurements: Sinus cycle length 989, MN interval 108 ms, QRS 86 and QT 419 ms AH 58 and HV 37 ms Venous sheaths were removed and hemostasis assured with a closure device. Patient extubated and transferred to recovery Increase procedural time The patient had very large pulmonary veins with multiple, proximal tributaries The right inferior pulmonary vein required to separate ablations for complete isolation. 83 tributaries The right middle vein required a separate ablation The right superior pulmonary vein was very large with 2 proximal branching tributaries that were individually isolated The left superior pulmonary vein had multiple proximal tributaries and required 2 separate selective occlusions/ablations Multiple attempts needed for successful cryoablation isolation of the right inferior, right superior and left superior pulmonary veins PROCEDURES PERFORMED Diagnostic EP study CS pacing and recording Left and right transseptal catheterization Catheter the mapping of the tachycardia Intracardiac echocardiography Pulmonary vein isolation with transseptal and comprehensive EPS, [id number] Extended procedure duration Left atrial roof line, +[id number] Electrical cardioversion with a synchronized shock across the chest [id number]
--- NOTE | 2023-03-21 12:06 | P.HPCAR ---
History of Present Illness This is Dr. Hall dictating an H/P on this patient The patient was interviewed and examined IMPRESSION / ASSESSMENT: Longstanding persistent symptomatic atrial fibrillation with diagnosed fatigue and heart failure symptoms Failed multiple drug treatments and cardioversion including amiodarone and flecainide Hypertension Normal TSH 1.2 Left ventricular ejection fraction was about 41% with global hypokinesis in 2020, during atrial fibrillation PLAN: Proceed with A-fib ablation with PVI and linear ablation of the left atrium Continue Xarelto HPI Patient continues to complain of shortness of breath tiredness and fatigue d espite adequate rate control No chest pain no dizziness no loss of consciousness recently ROS: No fever chills or rigors, no cough, phlegm or expectoration, no nausea, vomiting or diarrhea, no hematuria, dysuria, no musculoskeletal complaints, no strokes or seizures, no skin lesions. EXAMINATION: Blood pressure 200/100 mmHg, pulse rate in the 70s afebrile Heart sounds are irregular but rates are controlled at rest Lungs are clear no rhonchi no crackles Soft abdomen nontender Extremities are warm no edema REVIEW OF LABS, ECG & MEDICAL DATA Medications include metoprolol succinate, losartan, Xarelto and Prilosec Physical Exam Vitals: Vital Signs Temp Pulse Pulse Resp BP Pulse Ox 03/21/23 11:30 73 16 141/80 98 03/21/23 11:15 78 16 142/81 98 03/21/23 11:00 74 16 141/84 100 03/21/23 10:53 97.0 F L 78 16 143/93 100 03/21/23 06:22 98 F 111 H 16 200/100 96 Intake and Output 03/20/23 03/21/23 03/21/23 22:59 06:59 14:59 Intake Total 50 682 Balance 50 682 Intake: IV 50 682 Other: Weight 101.3 kg Past Medical History Past Medical History: Atrial Fibrillation, GERD/Reflux, Hypertension Additional Past Medical History / Comment(s): See Dr Hall's H&P History of Any Multi-Drug Resistant Organisms: None Reported Past Surgical History: Heart Catheterization Additional Past Surgical History / Comment(s): colonoscopy, cardioversion Past Anesthesia/Blood Transfusion Reactions: No Reported Reaction Additional Past Anesthesia/Blood Transfusion Reaction / Comment(s): . Smoking Status: Never smoker - Past Family History Mother Family Medical History: No Reported History Physical Examination Vital Signs Temp Pulse Pulse Resp BP Pulse Ox 03/21/23 11:30 73 16 141/80 98 03/21/23 11:15 78 16 142/81 98 03/21/23 11:00 74 16 141/84 100 03/21/23 10:53 97.0 F L 78 16 143/93 100 03/21/23 06:22 98 F 111 H 16 200/100 96 Intake and Output 03/20/23 03/21/23 03/21/23 22:59 06:59 14:59 Intake Total 50 682 Balance 50 682 Intake: IV 50 682 Other: Weight 101.3 kg Results 03/21/23 06:10 03/21/23 06:10 CBC 03/21/23 Range/Units 06:10 WBC 4.9 (3.8-10.6) k/uL RBC 4.92 (4.30-5.90) m/uL Hgb 14.7 (13.0-17.5) gm/dL Hct 43.0 (39.0-53.0) % Plt Count 191 (150-450) k/uL Comprehensive Metabolic Panel 03/21/23 Range/Units 06:10 Sodium 139 (137-145) mmol/L Potassium 4.0 (3.5-5.1) mmol/L Chloride 104 (98-107) mmol/L Carbon Dioxide 30 (22-30) mmol/L BUN 16 (9-20) mg/dL Creatinine 0.87 (0.66-1.25) mg/dL Glucose 97 (74-99) mg/dL Calcium 9.3 (8.4-10.2) mg/dL Current Medications Generic Name Dose Route Start Last Admin Trade Name Freq PRN Reason Stop Dose Admin Acetaminophen 650 mg 03/21/23 11:35 Acetaminophen Tab 325 Mg Tab PO Q6HR PRN Mild Pain (Scale 1 to 3) Losartan Potassium 100 mg 03/22/23 09:00 Losartan 50 Mg Tab PO DAILY [facility] Metoprolol Succinate 100 mg 03/22/23 09:00 Metoprolol Succinate (Er) 100 Mg Tab.Er.24h PO DAILY [facility] Pantoprazole Sodium 40 mg 03/22/23 09:00 Pantoprazole 40 Mg Tablet PO DAILY [facility] Rivaroxaban 20 mg 03/22/23 09:00 Rivaroxaban 20 Mg [facility] [place] [facility] Sodium Chloride 12 ml 03/21/23 11:35 Sodium Chloride 0.9% Flush 10 Ml Syringe IV Q12HR PRN Line Flush Intake and Output 03/20/23 03/21/23 03/21/23 22:59 06:59 14:59 Intake Total 50 682 Balance 50 682 Intake: IV 50 682 Other: Weight 101.3 kg 03/21/23 06:10 03/21/23 06:10
--- NOTE | 2023-03-21 13:54 | P.EPPROC ---
- EP Procedure Note Electrophysiology Procedure Note: Diagnosis High His bundle thresholds with RV pacing High RV thresholds Premature depletion of the dual-chamber pacemaker battery Planned procedure Upgrade to a biventricular pacemaker with a new LV lead Details Patient was brought to the EP lab in a fasting state. Written informed consent was obtained prior to the procedure. IV antibiotics administered Repeat left upper extremity venogram performed A very short occlusion identified at the subclavian axillary junction Percutaneous access was attempted and venous access was obtained at the axillary vein. A micropuncture wire was placed and I was able to cross the first occlusion successfully but there was an underappreciated second sequential occlusion in the subclavian vein and this wire would not pass through that site despite multiple attempts Therefore I decided not to open the pocket and perform a generator change at thi s time The biventricular pacemaker device was reprogrammed. AAI-DDD with the longest AV delay of 370 ms This is still promoted intrinsic conduction This will increase battery longevity Plan At the time of DAI, I would adopt a right-sided approach and implant an LV lead or a left bundle lead This lead would then be tunneled under the skin onto the left pectoral area to the new biventricular pacemaker generator Follow-up chest x-ray today and discharge home today
--- NOTE | 2023-03-22 08:06 | P.DS ---
Providers Attending physician: Hasmukh Hall Primary care physician: [facility] Course: Patient is doing well. Resting comfortably in bed No chest discomfort No dizziness lightheadedness No palpitations On telemetry he is maintaining sinus rhythm Groins have healed well mild tenderness no hematoma Blood pressure 148/93 130/67 as well as 99/63 Impression Longstanding persistent symptomatic atrial fibrillation with heart failure symptoms Reduced LV systolic function on intracardiac echo Thickened pericardium with exudative/fibrinous material especially at the base of the LV and posterior to the left atrium consistent with chronic pericarditis Hypertension with fluctuating blood pressure readings Plan Ambulate around the hallways Patient may go home today Continue Xarelto lifelong for now Continue metoprolol and losartan Consider splitting the dose of losartan to 50 mg twice daily to minimize blood pressure fluctuations Home blood pressure monitoring for the next 5 days, I instructed the patient and his to take blood pressures twice a day The a.m. blood pressures should be taken before the patient gets out of bed or even raises his head and sits up Recommended supine blood pressures first thing in the morning before sitting up or getting out of bed to look for supine nighttime hypertension Sitting blood pressures in the evening Plan - Discharge Summary Discharge Rx Participant: No New Discharge Prescriptions: No Action Rivaroxaban [Xarelto] 20 mg PO QAM Omeprazole [PriLOSEC] 40 mg PO DAILY #30 cap Metoprolol Succinate (ER) [Toprol Xl] 100 mg PO DAILY Losartan [Cozaar] 100 mg PO DAILY Cholecalciferol [Vitamin D3 (25 Mcg = 1000 Iu)] 50 mcg PO MOTUWETHFR Discharge Medication List Rivaroxaban [Xarelto] 20 mg PO QAM 06/12/20 [History] Omeprazole [PriLOSEC] 40 mg PO DAILY #30 cap 06/17/20 [Rx] Metoprolol Succinate (ER) [Toprol Xl] 100 mg PO DAILY 12/22/20 [History] Cholecalciferol [Vitamin D3 (25 Mcg = 1000 Iu)] 50 mcg PO MOTUWETHFR 03/16/23 [History] Losartan [Cozaar] 100 mg PO DAILY 03/16/23 [History]
[2023-03-22 08:38] VITALS: BP 148/98; PULSE 79; RESP 19; TEMP 97.6
[2023-03-22] MEDS ORDERED: PANTOPRAZOLE 40 MG TABLET PO SCH (09:00)
[2023-03-22] MEDS ORDERED: LOSARTAN 50 MG TAB PO SCH (09:00)
[2023-03-22] MEDS ORDERED: METOPROLOL SUCCINATE (ER) 100 MG TAB.ER.24H PO SCH (09:00)
[2023-03-22] MEDS ORDERED: RIVAROXABAN 20 MG TAB PO SCH (09:00)
== END 2023-03-22 12:11 | disposition home or self-care (01) ==
LOC: CATHEP 05:53 → 6NMEDSUR 10:33 → CATHEP 03-22 12:11
PROVIDERS: ATTEND Internal Medicine Clinical Cardiac Electrophysiology
DX: I48.11 Longstanding persistent atrial fibrillation (principal); I11.0 Hypertensive heart disease with heart failure; I50.9 Heart failure, unspecified; K21.9 Gastro-esophageal reflux disease without esophagitis; Z79.899 Other long term (current) drug therapy
CPT/HCPCS: 93656; 93657; 86900; 86901; 80048; 85025; 86850; C1894 ×2; C1769 ×3; C1760; C1730 ×2; C1759; C1893; C1733; C1766; Q9967; J1644

== ENCOUNTER 2023-07-06 09:54 | Day surgery (SDC) | payer BC ==
[2023-07-03 14:31] VITALS: BMI 29.8
[2023-07-06] MEDS: SODIUM CHLORIDE 0.9% 1,000 ML IV ONE (10:29)
[2023-07-06 10:41] VITALS: RESP 16; TEMP 98
[2023-07-06] MEDS ORDERED: MIDAZOLAM 2 MG/2 ML VIAL ONE (11:08)
[2023-07-06] MEDS ORDERED: PROPOFOL 10 MG/ML 20 ML VIAL IV ONE (11:08)
[2023-07-06] MEDS ORDERED: LIDOCAINE 1% INJ 10MG/ML (20 ML MDV) ONE (11:08)
[2023-07-06 11:17] LABS: ALT 22 U/L (4-49); AST 24 U/L (17-59); African American GFR (CKD) >90 (>60 ml/min/1.73 sqM); Albumin 4.6 g/dL (3.5-5.0); Alkaline Phosphatase 96 U/L (38-126); Anion Gap 9 mmol/L; Blood Urea Nitrogen 26 mg/dL (9-20); Calcium 9.2 mg/dL (8.4-10.2); Carbon Dioxide 25 mmol/L (22-30); Chloride 105 mmol/L (98-107); Glucose 95 mg/dL (74-99); Non-African American GFR(CKD) >90 (>60 ml/min/1.73 sqM); Sodium 139 mmol/L (137-145); Total Bilirubin 0.9 mg/dL (0.2-1.3); Total Protein 7.4 g/dL (6.3-8.2)
--- NOTE | 2023-07-06 12:03 | P.EPPROC ---
- EP Procedure Note Electrophysiology Procedure Note: Diagnosis Persistent atrial fibrillation Failed A-fib ablation with PVI and linear ablation of the left atrial roof Started flecainide 100 mg twice daily prior to A-fib ablation Procedure A 200 J biphasic shock in the AP configuration failed to convert the patient to sinus rhythm 2 simultaneous 200 J shocks delivered, 1 in the AP configuration and 1 in the anterior apical configuration Successful conversion to sinus rhythm, heart rate in the 60s Plan increase the dose of flecainide to 150 mg twice daily Reduce the dose of metoprolol succinate to 50 mg daily Continue Xarelto 20 mg daily with meals Continue losartan Follow-up with Dr. Hall in 4 weeks
--- NOTE | 2023-07-06 12:29 | P.HPCAR ---
History of Present Illness This is Dr. Hall dictating an H/P on this patient The patient was interviewed and examined IMPRESSION / ASSESSMENT: Persistent atrial fibrillation with RVR Failed A-fib ablation with PVI and linear ablation of the left atrial roof Exudative pericarditis noted on intracardiac echo particularly in the base of the left ventricle and posterior to the left atrium Recurrence of atrial fibrillation within 24 hours of ablation PLAN: Flecainide started 3 days prior to electrical cardioversion Electrical cardioversion on flecainide and reassessment of dose of flecainide and metoprolol thereafter Continue anticoagulation HPI Patient remains in atrial fibrillation. His LV rates were elevated and therefore the dose of beta-blockers was increased He is symptomatic from this feels tired fatigued and short of breath ROS: No fever chills or rigors, no cough, phlegm or expectoration, no nausea, vomiting or diarrhea, no hematuria, dysuria, no musculoskeletal complaints, no strokes or seizures, no skin lesions. EXAMINATION: Irregular rhythm, blood pressure 100 8100 mmHg pulse rate 131 beats a minute Afebrile breath sounds are clear no rhonchi no crackles heart sounds irregular no murmurs REVIEW OF LABS, ECG & MEDICAL DATA Sodium 139 potassium 4.0 BUN 26 and creatinine 0.81 Physical Exam Vitals: Vital Signs Temp Pulse Resp BP Pulse Ox 07/06/23 10:35 98 F 131 H 16 181/103 99 Intake and Output 07/05/23 07/06/23 07/06/23 22:59 06:59 14:59 Intake Total 50 Balance 50 Intake: IV 50 Other: Weight 99 kg Past Medical History Past Medical History: Atrial Fibrillation, GERD/Reflux, Hypertension Additional Past Medical History / Comment(s): See Dr Hall's H&P History of Any Multi-Drug Resistant Organisms: None Reported Past Surgical History: Cardiac Ablation, Heart Catheterization Additional Past Surgical History / Comment(s): colonoscopy, cardioversion 2022, cardiac ablation-Feb 2023. Past Anesthesia/Blood Transfusion Reactions: No Reported Reaction Additional Past Anesthesia/Blood Transfusion Reaction / Comment(s): No hx of blood transfusion.. Smoking Status: Never smoker - Past Family History Mother Family Medical History: No Reported History Physical Examination Vital Signs Temp Pulse Resp BP Pulse Ox 07/06/23 10:35 98 F 131 H 16 181/103 99 Intake and Output 0507/06/23 07/06/23 22:59 06:59 14:59 Intake Total 50 Balance 50 Intake: IV 50 Other: Weight 99 kg Results 07/06/23 10:00 Cardiac Enzymes 07/06/23 Range/Units 10:00 AST 24 (17-59) U/L Comprehensive Metabolic Panel 07/06/23 Range/Units 10:00 Sodium 139 (137-145) mmol/L Potassium 4.0 (3.5-5.1) mmol/L Chloride 105 (98-107) mmol/L Carbon Dioxide 25 (22-30) mmol/L BUN 26 H (9-20) mg/dL Creatinine 0.81 (0.66-1.25) mg/dL Glucose 95 (74-99) mg/dL Calcium 9.2 (8.4-10.2) mg/dL AST 24 (17-59) U/L ALT 22 (4-49) U/L Alkaline Phosphatase 96 (38-126) U/L Total Protein 7.4 (6.3-8.2) g/dL Albumin 4.6 (3.5-5.0) g/dL Current Medications Generic Name Dose Route Start Last Admin Trade Name Freq PRN Reason Stop Dose Admin Sodium Chloride 1,000 mls @ 20 mls/hr 07/06/23 05:54 Saline 0.9% IV 08/05/23 05:55 .Q24H YOEL Intake and Output 07/05/23 07/06/23 07/06/23 22:59 06:59 14:59 Intake Total 50 Balance 50 Intake: IV 50 Other: Weight 99 kg Patient Weight 07/07/23 06:59 Weight 99 kg 07/06/23 10:00
[2023-07-06 19:28] VITALS: BP 120/85; PULSE 69
== END 2023-07-06 12:47 | disposition home or self-care (01) ==
LOC: CATHEP 09:54
PROVIDERS: ATTEND Internal Medicine Clinical Cardiac Electrophysiology
DX: I48.91 Unspecified atrial fibrillation (principal); I10 Essential (primary) hypertension; Z79.899 Other long term (current) drug therapy; Z79.01 Long term (current) use of anticoagulants; Z82.49 Family history of ischemic heart disease and other diseases of the circulatory system
CPT/HCPCS: 92960; 80053; J2250; J2001; J2704